=== PATIENT | female | born 1965 | race Caucasian/White ===

== ENCOUNTER 2022-11-15 09:41 | Emergency (ER) | payer OTHER, SELFPAY ==
[2022-11-15 09:50] VITALS: BP 160/98; PULSE 108; RESP 18; TEMP 36.7; O2SAT 98; BMI 25.1
--- NOTE | 2022-11-15 10:14 | ED_ITS ---
HPI - Female Genitourinary General: Chief complaint: Urogenital-Female Stated complaint: Passing blood, Fever, pressure in lower abd&back Time Seen by Provider: 11/15/22 09:59 Source: patient Mode of arrival: ambulatory Limitations: no limitations History of Present Illness: This patient made her way to the emergency department today because of concerns about blood in her urine associated fever malaise urinary frequency. She states that she initially had some upper respiratory symptoms approximately week ago and no seem to improve and then she began developing urinary frequency and dysuria symptoms that she has had past with urinary tract infection. She increase her fluid intake but over the last 24 hours she has noted blood in her urine. She was awoke this morning with a temperature of 101 with hematuria as well. She denies any history of kidney stones. She denies any sore throat curr ently. She does have a mild nonproductive cough. She is a tobacco user but takes no daily medications. No prior history of COPD or asthma that she is aware. MD elicited complaint: dysuria Consistency: progressively worsening Associated symptoms: Reports fevers/chills and nausea; Deny headache(s) Review of Systems Const: Reports: fever(s), chills and body aches Eyes: Denies: change in vision ENMT: Reports: nasal congestion; Denies: throat pain, odynophagia or nasal discharge Card: Denies: chest pain, palpitations or irregular heart rhythm Resp: Reports: non-productive cough; Denies: dyspnea, productive cough or wheezing GI: Reports: nausea; Denies: vomiting or diarrhea : Reports: urinary frequency, urinary urgency and hematuria Musc: Reports: back pain; Denies: neck pain, extremity pain or extremity swelling Skin/Breast: Denies: rash Neuro: Denies: headache(s), numbness in extremities or weakness in extremities Basil/Lymph: Denies: easy bruising or easy bleeding Physical Exam Narrative: EXAM NARRATIVE: She appears to be in no acute distress makes good eye contact. Speech is goal- directed. Const: COMMON NORMALS: no acute distress, average body habitus and patient oriented x3 GENERAL APPEARANCE: cooperative and comfortable ORIENTATION/CONSCIOUSNESS: Yes awake HENMT: COMMON NORMALS: normocephalic, Normal nasal mucous membranes and turbinates present, moist oral mucous membranes and oropharynx normal HEAD & SCALP: normal to inspection and normocephalic FACE & SINUS: normal facial exam; no sinus tenderness NOSE: Normal nasal mucous membranes and turbinates present Eye: COMMON NORMALS: Equal, round and reactive pupils present, EOMs intact bilaterally and conjunctivae normal CONJUNCTIVA: Yes conjunctivae normal PUPIL: Yes Equal, round and reactive pupils present Neck/C-Spine: COMMON NORMALS: full ROM, no lymphadenopathy, supple, no JVD and No carotid bruits Chest: COMMONS NORMALS: normal inspection of the chest Resp: COMMON NORMALS: normal respiratory effort, No retractions, No use of accessory muscles and clear to auscultation bilaterally AUSCULTATION: clear to auscultation bilaterally Cardio: COMMON NORMALS: no JVD, regular rate, regular rhythm, No murmurs present (Cardio) and Peripheral pulses 2+ throughout RATE: regular rate RHYTHM: regular rhythm PERIPHERAL PULSES: Peripheral pulses 2+ throughout GI: COMMON NORMALS: Normal to inspection, nondistended, normoactive bowel sounds present, Soft to palpation, non-tender, No hepatosplenomegaly present and no masses PALPATION: Yes Soft to palpation and Yes No hepatosplenomegaly present : COMMON NORMALS: Yes no CVA tenderness BLADDER/KIDNEY EXAM: Yes no CVA tenderness Back/Pelvis: COMMON NORMALS: no CVA tenderness, thoracic and lumbar spine normal to inspection, no thoracic nor lumbar tenderness, thoraco-lumbar ROM nor mal and straight leg raise negative bilaterally Extremity: COMMON NORMALS: normal to inspection, full ROM, capillary refill normal, no calf tenderness and no pedal edema Neuro: COMMON NORMALS: patient oriented x3, no focal motor deficits and no sensory deficits noted CRANIAL NERVES: Yes CN normal except as noted Psych: COMMON NORMALS: mental status grossly normal Skin: COMMON NORMALS: no rashes or lesions noted, no wounds, turgor normal and no jaundice GENERAL SKIN EXAM: no rashes or lesions noted and turgor normal Course Reevaluation(s): Reevaluation #1: Patient reevaluated. She appears to be comfortable at this time. Laboratories were reviewed and reassuring and that there is no evidence of sepsis etc. She will be given IV ceftriaxone in addition to her fluid bolus. She is stable to be treated as an outpatient and this was reviewed with her. She voiced understanding and was appreciative of care. Time: 11:47 Vital Signs: Vital signs: Vital Signs Temperature 98.0 F 11/15/22 09:50 Pulse Rate 108 H 11/15/22 09:50 Respiratory Rate 18 11/15/22 09:50 Blood Pressure 160/98 11/15/22 09:50 Pulse Oximetry 98 11/15/22 09:50 Oxygen Delivery Me thod Room Air 11/15/22 09:50 MDM - Female Medical Decision Making Normally healthy female who has had progressive dysuria now progressed to hematuria with fever. Clinical examination revealed some low back tenderness but no other significant or worrisome findings on her examination. No other cl inical examination findings to suggest other current etiologies to her presentation to include pharyngitis, respiratory findings etc. Ancillary studies were obtained to include a CBC chemistries urinalysis which did reveal evidence strongly suggestive of upper urinary tract infection with pyuria hematuria and bacteria. She has preserved kidney function and a normal lactic acid level is able to eat and drink without any difficulty and therefore amenable to outpatient treatment with good return precautions. Anticipated course and return precautions were reviewed as well. Lab Data I reviewed the patient's lab results. 11/15/22 10:31 11/15/22 10:31 Laboratory Results WBC 11.8 10^3/uL (4.0-10.0) H 11/15/22 10:31 RBC 3.91 10^6/uL (4.1-5.3) L 11/15/22 10:31 Hgb 14.4 g/dL (11.5-15.3) 11/15/22 10:31 Hct 42.2 % (37.0-47.0) 11/15/22 10:31 MCV 107.9 fl (81-99) H 11/15/22 10:31 MCH 36.8 pg (28.0-34.0) H 11/15/22 10:31 MCHC 34.1 g/dL (30.0-36.0) 11/15/22 10:31 RDW 13.2 % (12.1-15.1) 11/15/22 10:31 Plt Count 218 10^3/cmm (130-400) 11/15/22 10:31 MPV 9.3 fL (7.4-10.4) 11/15/22 10:31 Neut % (Auto) 76.5 % 11/15/22 10:31 Lymph % (Auto) 13.9 % 11/15/22 10:31 Nicholas % (Auto) 9.0 % 11/15/22 10:31 Eos % (Auto) 0.1 % 11/15/22 10:31 Baso % (Auto) 0.2 % 11/15/22 10:31 Neut # (Auto) 9.03 10^3/uL (1.8-7.7) H 11/15/22 10:31 Lymph # (Auto) 1.6 10^3/uL (0.8-4.8) 11/15/22 10:31 Nicholas # (Auto) 1.1 10^3/uL (0.2-0.9) H 11/15/22 10:31 Eos # (Auto) 0.0 10^3/uL (0.0-0.8) 11/15/22 10:31 Baso # (Auto) 0.0 10^3/uL (0.0-0.1) 11/15/22 10:31 Nucleated RBC % (auto) 0 % 11/15/22 10:31 Nucleated RBCs # 0.0 /100WBC 11/15/22 10:31 Sodium 139 mmol/L (136-145) 11/15/22 10:31 Potassium 3.9 mmol/L (3.5-5.1) 11/15/22 10:31 Chloride 106 mmol/L (98-107) 11/15/22 10:31 Carbon Dioxide 23 mmol/L (22-29) 11/15/22 10:31 Anion Gap 13.9 (5-19) 11/15/22 10:31 BUN 4 mg/dL (6-20) L 11/15/22 10:31 Creatinine 0.4 mg/dL (0.5-0.9) L 11/15/22 10:31 GFR Calculation 165.7 mL/min (90-130) H 11/15/22 10:31 Glucose 95 mg/dL (65-115) 11/15/22 10:31 Calculated Osmolality 285 mOsm/kg (285-295) 11/15/22 10:31 Lactic Acid 1.0 mmol/L (0.5-2.2) 11/15/22 10:31 Calcium 9.3 mg/dL (8.5-10.5) 11/15/22 10:31 Total Bilirubin 0.6 mg/dL (0.15-1.2) 11/15/22 10:31 AST 29 U/L (0-32) 11/15/22 10:31 ALT 28 U/L (0-33) 11/15/22 10:31 Alkaline Phosphatase 118 U/L (35-105) H 11/15/22 10:31 Total Protein 7.4 g/dL (6.6-8.7) 11/15/22 10:31 Albumin 4.4 g/dL (3.5-5.2) 11/15/22 10:31 Globulin 3.0 g/dL (1.3-4.6) 11/15/22 10:31 Urine Color Straw (Yellow) 11/15/22 Unknown Urine Appearance Sl hazy (CLEAR) A 11/15/22 Unknown Urine pH 6.5 (5-7) 11/15/22 Unknown Ur Specific [place] 1.005 (1.005-1.030) 11/15/22 Unknown Urine Protein Trace (Negative) 11/15/22 Unknown Urine Glucose (UA) Norm (Normal) 11/15/22 Unknown Urine Ketones Negative (Negative) 11/15/22 Unknown Urine Blood 3+ (Negative) H 11/15/22 Unknown Urine Nitrate Negative (Negative) 11/15/22 Unknown Urine Bilirubin Neg (Negative) 11/15/22 Unknown Urine Urobilinogen Norm mg/dL (Negative) 11/15/22 Unknown Ur Leukocyte Esterase 2+ (Negative) H 11/15/22 Unknown Urine RBC 5-10 /hpf (0-2) H 11/15/22 Unknown Urine WBC >100 /hpf (0-5) H 11/15/22 Unknown Ur Squamous Epith Cells Rare /hpf (0-5) 11/15/22 Unknown Amorphous Sediment Not Reportable 11/15/22 Unknown Urine Bacteria 2+ /hpf (NONE) H 11/15/22 Unknown Discharge Plan Discharge Patient Disposition: Home Clinical Impression: Urinary tract infection Condition: Stable Prescriptions: New cephalexin 500 mg capsule 500 mg PO TID 7 Days Qty: 21 0RF hyoscyamine sulfate [Levsin] 0.125 mg tablet 0.125 mg PO Q6H PRN (Reason: bladder spasms) Qty: 20 0RF No Action Tylenol Ex Str Rapid Release 500 mg Tablet 1,000 mg PO Q6H PRN (Reason: Pain) Excedrin Migraine 250-250-65 mg Tablet 2 tab PO Q6H PRN (Reason: Migraine Headache) Oil Of Oregano 2 drp sublingual TID PRN (Reason: UNKNOWN) Discharge Orders: Discharge ED (Routine); Ordered 11/15/22 Ordered By: Enrike Taveras Referrals: Suleman Sheehan MD [Primary Care Provider] - Discharge Diet: Advance as tolerated Discharge Activity: Increase activity as tolerated Patient Instructions: Opioid Safety, Pain Management Activity Restrictions/Additional Instructions: As we just discussed while you are in the emergency department your evaluation today suggest you have a kidney infection that is causing your fever body aches and other symptoms. We have given you antibiotics while you are in the emergency department and also obtain cultures of your blood and urine to ensure proper treatment. We have provided a prescription for antibiotics as well as a medication to help with any bladder or ureteral spasms during your treatment. You may use either ibuprofen or acetaminophen for fever or other body aches. M campos sure you drink at least 64 or greater ounces of water daily. If your symptoms are not completely resolving in the next 48-72 hours or worsening at any time return to this or the nearest emergency department for reevaluation. Coding Level of Care Code ED [facility] Room Hand for Devendra Mayo
[2022-11-15 10:40] LABS: Basophils % 0.2 %; Eosinophils % 0.1 %; Hematocrit 42.2 % (37.0-47.0); Hemoglobin 14.4 g/dL (11.5-15.3); Lymphocytes # 1.6 10^3/uL (0.8-4.8); Lymphocytes % 13.9 %; Mean Corpuscular HGB Conc 34.1 g/dL (30.0-36.0); Mean Corpuscular Hemoglobin 36.8 pg (28.0-34.0); Mean Corpuscular Volume 107.9 fl (81-99); Mean Platelet Volume 9.3 fL (7.4-10.4); Monocytes # 1.1 10^3/uL (0.2-0.9); Neutrophils # 9.03 10^3/uL (1.8-7.7); Neutrophils % 76.5 %; Nucleated Red Blood Cells % 0 %; Platelet Count 218 10^3/cmm (130-400); Red Blood Count 3.91 10^6/uL (4.1-5.3); Red Cell Distribution Width 13.2 % (12.1-15.1); White Blood Count 11.8 10^3/uL (4.0-10.0)
[2022-11-15] MEDS: sodium chloride 0.9% 1,000 ML 999 ML IV (10:40)
[2022-11-15 11:00] LABS: Urine Appearance SL Hazy (CLEAR); Urine Color Straw (Yellow)
[2022-11-15 11:01] LABS: Add Urine Culture? Yes; Add Urine Microscopic? YES; Bacteria Urine 2+ /hpf; Bilirubin Urine Neg (Negative); Blood Urine 3+ (Negative); Glucose Urine UA Norm (Normal); Ketones Urine Negative (Negative); Leukocyte Esterase Urine 2+ (Negative); Nitrate Urine Negative (Negative); Protein Urine Trace (Negative); Specific Gravity, Urine 1.005 (1.005-1.030); Squamous Epithelial Cell Urine RARE /hpf (0-5); Urobilinogen Urine Norm (Negative); WBC Urine >100 /hpf (0-5); pH Urine 6.5 (5-7)
[2022-11-15 11:03] LABS: Alanine Aminotransferase 28 U/L (0-33); Albumin Level 4.4 g/dL (3.5-5.2); Alkaline Phosphatase 118 U/L (35-105); Blood Urea Nitrogen 4 mg/dL (6-20); Calcium 9.3 mg/dL (8.5-10.5); Carbon Dioxide 23 mmol/L (22-29); Chloride 106 mmol/L (98-107); Glomerular Filtration Rate 165.7 mL/min (90-130); Glucose 95 mg/dL (65-115); Osmolality Calculated 285 mOsm/kg (285-295); Sodium 139 mmol/L (136-145); Total Bilirubin 0.6 mg/dL (0.15-1.2); Total Protein 7.4 g/dL (6.6-8.7)
[2022-11-15 11:05] LABS: Anion Gap 13.9 (5-19); Potassium 3.9 mmol/L (3.5-5.1)
[2022-11-15 11:06] LABS: Aspartate Amino Transferase 29 U/L (0-32)
[2022-11-15] MEDS: ketorolac 30 mg/mL INJ 15 MG IVP (11:08)
[2022-11-15] MEDS: cefTRIAXone 2,000 MG in sodium chloride 0.9% (plus) 50 ML 100 MG IV (11:54)
[2022-11-15 12:46] VITALS: BP 122/87; PULSE 84; O2SAT 97
== END 2022-11-15 12:49 | disposition home or self-care (01) ==
PROVIDERS: Emergency Provider Emergency Medicine; PCP Family Medicine
DX: N39.0 Urinary tract infection, site not specified (principal); R31.9 Hematuria, unspecified
CPT/HCPCS: 36415; 80053; 81001; 83605; 85025; 87040; 87077; 87086; 87186; 96361; 96374; 99284; J0696; J1885; J7030